=== PATIENT | female | born 1940 | race Caucasian/White ===

== ENCOUNTER 2017-07-17 10:39 | Emergency (ER) | payer OTHER ==
[2017-07-17 10:46] VITALS: TEMP 98.4
--- NOTE | 2017-07-17 11:00 | EDPHY ---
H & P Time Seen by Provider: 07/17/17 10:52 HPI/ROS: CHIEF COMPLAINT: Right shoulder and right elbow injury HISTORY OF PRESENT ILLNESS: 77-year-old female in the ER via private vehicle complaining of acute right shoulder and right elbow injury after she was playing tennis, tripped and fell onto her right shoulder and elbow. She is complaining of reproducible pain to same location with palpation range of motion. Occurred shortly prior to arrival. No head injury. No midline C-spine pain. No peripheral paresthesia, weakness, numbness. Tetanus up-to-date PRIMARY CARE PROVIDER:Dr. Nando Hall. Primary orthopedics: Dr. Lanie Monroy PHYSICAL EXAM (Prior to examination, patient consented to physical exam, hands were washed and my usual and customary physical exam procedures followed) 1) GENERAL: Well-developed, well-nourished, alert and oriented. Appears to be in no acute distress. 2) HEAD: Normocephalic 3) HEENT: sclera anicteric 4) LUNGS: Breathing comfortably. 5) SKIN: Abrasion to right dorsal elbow. 6) MUSCULOSKELETAL: Tender to palpation right shoulder, right elbow. Superficial skin avulsion to the dorsal right elbow with no evidence of puncture wound or laceration. No visible deformity, no step-off, no crepitus. 7) NEUROLOGIC: Radial ulnar median nerve function intact distally (Khanh,Latrice Indira) Constitutional: Initial Vital Signs Temperature (C) 36.9 C 07/17/17 10:42 Heart Rate 67 07/17/17 10:42 Respiratory Rate 16 07/17/17 10:42 Blood Pressure 182/96 H 07/17/17 10:42 O2 Sat (%) 98 07/17/17 10:42 O2 Delivery Mode Room Air Allergies/Adverse Reactions: quinidine Allergy (Intermediate, Verified 07/17/17 10:47) high fever Penicillins Allergy (Mild, Verified 07/17/17 10:47) Rash emycin Allergy (Unknown, Uncoded 07/17/17 10:47) Home Medications: Medication Instructions Recorded Estradiol [Estradiol 1 MG (*)] 1 mg PO DAILY 07/17/17 Hydrocodone/APAP 5/325 [Emery 1 tab PO Q6 PRN #10 tab 07/17/17 5/325 (RX)] Montelukast Sodium [Singulair 4 mg 4 mg PO 07/17/17 (*)] Omeprazole [Prilosec 20 mg] 20 mg PO DAILY 07/17/17 MDM/Departure - [facility] Imaging Results: Imaging Impressions Elbow X-Ray 07/17/17 10:54 Impression: Acute nondisplaced olecranon fracture(s). Shoulder X-Ray 07/17/17 10:54 Impression: No acute abnormality. If there is progression of the patient's symptoms, consider MR imaging. Images reviewed myself (Latrice Cassidy) Procedures: Procedure: Splint A posterior Ortho Glass long arm splint and sling was applied by ER training technician. After application of the splint I returned and re-examined the patient. The splint was adequately immobilizing the joint and distal to the splint the patient's circulation and sensation were intact. Patient shows no signs of compartment syndrome. Was given orthopedic precautions. (Latrice Cassidy) Medications Given: Discontinued Medications Cyclobenzaprine HCl (Flexeril) 10 mg PO EDNOW ONE Stop: 07/17/17 12:51 Last Admin: 07/17/17 13:08 Dose: 10 mg Ibuprofen (Motrin) 600 mg PO EDNOW ONE Stop: 07/17/17 12:11 Last Admin: 07/17/17 12:14 Dose: 600 mg Tetracaine/Epinephrine/Lidocaine (Let Gel Topical) 1 ea TP EDNOW ONE Stop: 07/17/17 12:41 Last Admin: 07/17/17 12:41 Dose: 1 ea ED Course/Re-evaluation: This patient was re-evaluated with serial examinations and case discussed with secondary supine position Dr. Nando Maxwell in the ER. She is noted to have a nondisplaced olecranon fracture. I consulted with Orthopedics Dr. Stevens at 12: 35 p.m. who agrees with plan for splinting and follow up in office on Monday (today is Monday). . She is noted to have an overlying superficial skin avulsion which has been explored by myself and I think it is unlikely that this represents an open fracture as this is quite superficial and there is no puncture wound or laceration. Regarding her shoulder injury, she has been informed that although no definitive osseous abnormality is visualized, non osseous injury is not ruled out. She will therefore necessitate follow up with Orthopedics as well. (Latrice Cassidy) - Depart Disposition: Home, Routine, Self-Care Clinical Impression: Tennis court as place of occurrence of external cause Abrasion of right elbow Qualifiers: Encounter type: initial encounter Qualified Code(s): S50.311A - Abrasion of right elbow, initial encounter Fracture of right olecranon process Qualifiers: Encounter type: initial encounter Fracture type: closed Qualified Code(s): S52.021A - Displaced fracture of olecranon process without intraarticular extension of right ulna, initial encounter for closed fracture Condition: Good Instructions: Elbow Fracture (ED) Additional Instructions: Return to the ER immediately if you experience discoloration, have worsening pain, numbness, tingling, or any other symptoms that concern you. If you received x-rays in the emergency department today, be advised, that ligamentous , tendon, muscular, and other non-bony injury cannot be fully ruled out. Try to keep your affected extremity elevated above the level of your chest, and keep cold packs on the affected area, for the next 48 hours. Prescriptions: Hydrocodone/APAP 5/325 [Emery 5/325 (RX)] 1 tab PO Q6 PRN #10 tab PRN Reason: Pain, Severe Referrals: Rayray Stevens MD [Medical Doctor] - 07/19/17
[2017-07-17] MEDS ORDERED: IBUPROFEN 600 MG TAB PO ONE (12:10)
[2017-07-17] MEDS ORDERED: LET GEL TOPICAL 1 EA SYR TP ONE ×2 (12:37→12:40)
[2017-07-17] MEDS ORDERED: CYCLOBENZAPRINE 10 MG TAB PO ONE (12:50)
[2017-07-17 13:56] VITALS: BP 178/81; PULSE 59; RESP 20; O2SAT 99
== END 2017-07-17 13:56 | disposition home or self-care (01) ==
DX: S52.021A Displaced fracture of olecranon process without intraarticular extension of right ulna, initial encounter for closed fracture (principal); W01.0XXA Fall on same level from slipping, tripping and stumbling without subsequent striking against object, initial encounter; Y92.312 Tennis court as the place of occurrence of the external cause; Y99.8 Other external cause status; Y93.73 Activity, racquet and hand sports
CPT/HCPCS: 73030; 73080; 99283; A4565

== ENCOUNTER → 2017-09-29 | Outpatient (CLI) | payer OTHER | LOC: FIMAGING 08:36 | PROVIDERS: ATTEND Internal Medicine | DX: Z12.31 Encounter for screening mammogram for malignant neoplasm of breast (principal); Z79.890 Hormone replacement therapy ==

== ENCOUNTER → 2018-10-31 | Outpatient (CLI) | payer OTHER | LOC: FIMAGING 15:51 | PROVIDERS: ATTEND Internal Medicine | DX: Z12.31 Encounter for screening mammogram for malignant neoplasm of breast (principal) ==